=== PATIENT | male | born 1970 | race Caucasian/White ===

== ENCOUNTER 2017-10-15 12:41 | Observation (INO) | payer OTHER ==
[~2017-10-15] VITALS: Ht 160 cm; Wt 80.0 kg
[2017-10-15 12:45] VITALS: BP 149/65; PULSE 95; RESP 16; TEMP 97.8; O2SAT 100
[2017-10-15] MEDS ORDERED: SODIUM CHLOR 0.9% 1000 ML INJ 1,000 ML IV SCH (12:58)
[2017-10-15] MEDS ORDERED: PANTOPRAZOLE SODIUM 40 MG VIAL IVP ONE (13:00)
[2017-10-15] MEDS ORDERED: SODIUM CHLORIDE 0.9% FLUSH 10 ML FLUSH IVF PRN (13:00)
[2017-10-15] MEDS ORDERED: GABA300C5 PO (13:08)
[2017-10-15] MEDS ORDERED: PARO20TA2 PO (13:08)
[2017-10-15] MEDS ORDERED: GABA600T PO (13:08)
[2017-10-15] MEDS ORDERED: BUSP30TA PO (13:08)
[2017-10-15 13:09] VITALS: O2SAT 97
--- NOTE | 2017-10-15 13:11 | PD ---
HPI Chief Complaint: Abdominal Pain Time Seen by Provider: 12:48 Travel History International Travel<30 days: No Contact w/Intl Traveler<30days: No Traveled to known affect area: No History of Present Illness HPI Patient is a 47-year-old male presenting to emergency for evaluation of abdominal pain. Patient states it started 4 days ago, black tarry like stools. Symptoms started gradually, getting progressively worse. He reports that food does help improve the abdominal pain. Pain is all over but he localizes it to the left and right lower quadrants. Patient reports feeling weak and bloated. He denies any nausea, vomiting, fever, chills. He reports his pain is a 5 out of 10, again symptom onset was gradual, alleviated by food. Patient reports that he was on the antacids for his stomach however he was taken off of this medication 6 months ago. He has a history of GI bleeding gastric ulcers. PFSH Past Medical History Anxiety: Yes Depression: Yes Gastrointestinal Disorders: Yes (GI bleed, ulcers) Psychiatric: Yes (PTSD) Social History Alcohol Use: No Tobacco Use: No Substance Use: No Allergies-Medications (Allergen,Severity, Reaction): Coded Allergies: No Known Allergies (Unverified , 08/24/12) Reported Meds & Prescriptions Reported Meds & Active Scripts Active Reported Paroxetine (Paroxetine HCl) 20 Mg Tab 20 Mg PO DAILY Buspirone (Buspirone HCl) 30 Mg Tab 30 Mg PO HS Gabapentin 300 Mg Cap 300 Mg PO TID Gabapentin 600 Mg Tab 600 Mg PO HS Review of Systems Except as stated in HPI: all other systems reviewed are Neg Gastrointestinal: Positive: Abdominal Pain, Changes in Bowel Habits, Other ( Dark stools), No: Nausea, Vomiting Neurologic: Positive: Weakness Physical Exam Narrative GENERAL: Well-developed, well-nourished, alert male. Presenting in no acute distress. SKIN: Warm and dry. HEAD: Atraumatic. Normocephalic. EYES: Pupils equal and round. No scleral icterus. No injection or drainage. ENT: No nasal bleeding or discharge. Mucous membranes pink and moist. NECK: Trachea midline. No JVD. CARDIOVASCULAR: Regular rate and rhythm. RESPIRATORY: No accessory muscle use. Clear to auscultation. Breath sounds equal bilaterally. GASTROINTESTINAL: Abdomen soft, mildly tender to palpation diffusely, mildly distended. Hepatic and splenic margins not palpable. Positive bowel sounds, rebound, guarding. MUSCULOSKELETAL: Extremities without clubbing, cyanosis, or edema. No obvious deformities. NEUROLOGICAL: Awake and alert. No obvious cranial nerve deficits. Motor grossly within normal limits. Five out of 5 muscle strength in the arms and legs. Normal speech. PSYCHIATRIC: Appropriate mood and affect; insight and judgment normal. Data Data Last Documented VS Vital Signs Date Time Temp Pulse Resp B/P (MAP) Pulse Ox O2 Delivery O2 Flow Rate FiO2 10/15/17 13:10 18 10/15/17 13:09 97 Nasal Cannula 2.00 10/15/17 12:45 97.8 95 149/65 (93) Orders Orders Complete Blood Count With Diff (10/15/17 12:58) Comprehensive Metabolic Panel (10/15/17 12:58) Lipase (10/15/17 12:58) Prothrombin Time / Inr (Pt) (10/15/17 12:58) Act Partial Throm Time (Ptt) (10/15/17 12:58) Type And Screen (10/15/17 12:58) Ecg Monitoring (10/15/17 12:58) Iv Access Insert/Monitor (10/15/17 12:58) Oximetry (10/15/17 12:58) Pantoprazole Inj (Protonix Inj) (10/15/17 13:00) Sodium Chlor 0.9% 1000 Ml Inj (Ns 1000 M (10/15/17 12:58) Sodium Chloride 0.9% Flush (Ns Flush) (10/15/17 13:00) Sodium Chloride 0.9... W/Pantoprazole In (10/15/17 14:50) Admit Order (Ed Use Only) (10/15/17 15:50) Place In Observation (10/15/17 ) Vital Signs (Adult) Q4H (10/15/17 15:50) Activity Oob With Assistance (10/15/17 15:50) Printer Slotter Feeder / Telemetry .CONTINUOUS (10/15/17 15:50) Intake + Output OLAF.QSHIFT (10/15/17 15:50) Diet Npo (10/15/17 Dinner) Sodium Chlor 0.9% 1000 Ml Inj (Ns 1000 M (10/15/17 15:50) Sodium Chloride 0.9% Flush (Ns Flush) (10/15/17 16:00) Sodium Chloride 0.9% Flush (Ns Flush) (10/15/17 21:00) Acetaminophen (Tylenol) (10/15/17 16:00) Ondansetron Inj (Zofran Inj) (10/15/17 16:00) Scd Bilateral/Knee High OLAF.BID (10/15/17 15:50) Naloxone Inj (Narcan Inj) (10/15/17 16:00) Magnesium Hydroxide Liq (Milk Of Magnesi (10/15/17 16:00) Sennosides (Senokot) (10/15/17 16:00) Bisacodyl Supp (Dulcolax Supp) (10/15/17 16:00) Pantoprazole Inj (Protonix Inj) (10/15/17 16:00) Labs Laboratory Tests Test 10/15/17 13:08 White Blood Count 7.5 TH/MM3 Red Blood Count 4.17 MIL/MM3 Hemoglobin 13.7 GM/DL Hematocrit 38.8 % Mean Corpuscular Volume 93.0 FL Mean Corpuscular Hemoglobin 32.7 PG Mean Corpuscular Hemoglobin Concent 35.2 % Red Cell Distribution Width 13.5 % Platelet Count 227 TH/MM3 Mean Platelet Volume 9.3 FL Neutrophils (%) (Auto) 63.7 % Lymphocytes (%) (Auto) 27.0 % Monocytes (%) (Auto) 7.2 % Eosinophils (%) (Auto) 1.5 % Basophils (%) (Auto) 0.6 % Neutrophils # (Auto) 4.8 TH/MM3 Lymphocytes # (Auto) 2.0 TH/MM3 Monocytes # (Auto) 0.5 TH/MM3 Eosinophils # (Auto) 0.1 TH/MM3 Basophils # (Auto) 0.0 TH/MM3 CBC Comment DIFF FINAL Differential Comment Prothrombin Time 10.3 SEC Prothromb Time International Ratio 1.0 RATIO Activated Partial Thromboplast Time 24.7 SEC Blood Urea Nitrogen 13 MG/DL Creatinine 0.95 MG/DL Random Glucose 102 MG/DL Total Protein 7.4 GM/DL Albumin 3.9 GM/DL Calcium Level 9.1 MG/DL Alkaline Phosphatase 54 U/L Aspartate Amino Transf (AST/SGOT) 19 U/L Alanine Aminotransferase (ALT/SGPT) 26 U/L Total Bilirubin 0.4 MG/DL Sodium Level 137 MEQ/L Potassium Level 4.1 MEQ/L Chloride Level 104 MEQ/L Carbon Dioxide Level 26.1 MEQ/L Anion Gap 7 MEQ/L Estimat Glomerular Filtration Rate 85 ML/MIN Lipase 121 U/L [facility] Medical Decision Making Medical Screen Exam Complete: Yes Emergency Medical Condition: Yes Interpretation(s) Laboratory Tests Test 10/15/17 13:08 White Blood Count 7.5 TH/MM3 Red Blood Count 4.17 MIL/MM3 Hemoglobin 13.7 GM/DL Hematocrit 38.8 % Mean Corpuscular Volume 93.0 FL Mean Corpuscular Hemoglobin 32.7 PG Mean Corpuscular Hemoglobin Concent 35.2 % Red Cell Distribution Width 13.5 % Platelet Count 227 TH/MM3 Mean Platelet Volume 9.3 FL Neutrophils (%) (Auto) 63.7 % Lymphocytes (%) (Auto) 27.0 % Monocytes (%) (Auto) 7.2 % Eosinophils (%) (Auto) 1.5 % Basophils (%) (Auto) 0.6 % Neutrophils # (Auto) 4.8 TH/MM3 Lymphocytes # (Auto) 2.0 TH/MM3 Monocytes # (Auto) 0.5 TH/MM3 Eosinophils # (Auto) 0.1 TH/MM3 Basophils # (Auto) 0.0 TH/MM3 CBC Comment DIFF FINAL Differential Comment Prothrombin Time 10.3 SEC Prothromb Time International Ratio 1.0 RATIO Activated Partial Thromboplast Time 24.7 SEC Blood Urea Nitrogen 13 MG/DL Creatinine 0.95 MG/DL Random Glucose 102 MG/DL Total Protein 7.4 GM/DL Albumin 3.9 GM/DL Calcium Level 9.1 MG/DL Alkaline Phosphatase 54 U/L Aspartate Amino Transf (AST/SGOT) 19 U/L Alanine Aminotransferase (ALT/SGPT) 26 U/L Total Bilirubin 0.4 MG/DL Sodium Level 137 MEQ/L Potassium Level 4.1 MEQ/L Chloride Level 104 MEQ/L Carbon Dioxide Level 26.1 MEQ/L Anion Gap 7 MEQ/L Estimat Glomerular Filtration Rate 85 ML/MIN Lipase 121 U/L Vital Signs Date Time Temp Pulse Resp B/P (MAP) Pulse Ox O2 Delivery O2 Flow Rate FiO2 10/15/17 12:45 97.8 95 16 149/65 93 100 Differential Diagnosis GI bleed versus metabolic abnormality versus peptic ulcer disease versus anemia versus other Narrative Course Patient is a 47-year-old male presenting for evaluation of abdominal pain and dark stools. Hemoccult is positive. Labs ordered and pending. Patient's vital signs are stable. Labs reviewed, no acute findings identified. Patient was started on a Protonix drip. Patient will be admitted to observation for trending of hemoglobin. Patient is agreeable and was advised in all findings. He reports that the last GI bleed he had his hemoglobin was 4, he states he came in earlier this time to avoid that. He reports that this last episode was several years ago. He continues to deny any alcohol use. Dr. Roe accepted admit , orders placed. HemaPrompt Point of Care Fecal Specimen Occult Blood: Positive Diagnosis Primary Impression: GI bleed Qualified Codes: K92.2 - Gastrointestinal hemorrhage, unspecified Admitting Information Admitting Physician Requests: Observation Condition: Stable Tory Agustin Oct 15, 2017 13:11
[2017-10-15 13:32] LABS: AUTOMATED NEUTROPHIL # 4.8 TH/MM3 (1.8-7.7); BASOPHIL % 0.6 % (0.0-2.0); EOSINOPHIL # 0.1 TH/MM3 (0-0.4); EOSINOPHIL % 1.5 % (0.0-4.0); HEMATOCRIT 38.8 % (39.0-51.0); HEMOGLOBIN 13.7 GM/DL (13.0-17.0); MEAN CORPUSCULAR HEMOGLOBIN 32.7 PG (27.0-34.0); MEAN CORPUSCULAR HGB CONC 35.2 % (32.0-36.0); MEAN PLATELET VOLUME 9.3 FL (7.0-11.0); MONO % 7.2 % (0.0-8.0); MONOCYTE # 0.5 TH/MM3 (0-0.9); NEUT % 63.7 % (16.0-70.0); PLATELET COUNT 227 TH/MM3 (150-450); RED BLOOD COUNT 4.17 MIL/MM3 (4.50-5.90); RED CELL DISTRIBUTION WIDTH 13.5 % (11.6-17.2); WHITE BLOOD COUNT 7.5 TH/MM3 (4.0-11.0)
[2017-10-15 13:44] LABS: PROTHROMBIN TIME - PATIENT 10.3 SEC (9.8-11.6)
[2017-10-15 14:15] LABS: ALBUMIN 3.9 GM/DL (3.4-5.0); ALKALINE PHOSPHATASE 54 U/L (45-117); ALT (GPT) 26 U/L (12-78); AST (GOT) 19 U/L (15-37); BICARBONATE 26.1 MEQ/L (21.0-32.0); BLOOD UREA NITROGEN 13 MG/DL (7-18); CALCIUM 9.1 MG/DL (8.5-10.1); CHLORIDE 104 MEQ/L (98-107); CREATININE 0.95 MG/DL (0.60-1.30); GLOMERULAR FILTRATION RATE 85 ML/MIN (>89); GLUCOSE,RANDOM 102 MG/DL (74-106); SODIUM (NA) 137 MEQ/L (136-145); TOTAL BILIRUBIN ADULT 0.4 MG/DL (0.2-1.0); TOTAL PROTEIN 7.4 GM/DL (6.4-8.2)
[2017-10-15] MEDS: PANTOPRAZOLE INJ 80 MG in SODIUM CHLORIDE 0.9% INJ 100 ML IV SCH (15:10)
[2017-10-15] MEDS ORDERED: ONDANSETRON HCL 4 MG/2 ML VIAL IVP PRN (16:00)
[2017-10-15] MEDS ORDERED: SENNOSIDES 8.6 MG TAB PO PRN (16:00)
[2017-10-15] MEDS ORDERED: BISACODYL 10 MG SUPP RECTAL PRN (16:00)
[2017-10-15] MEDS ORDERED: NALOXONE HCL 0.4 MG/ML AMP IV PUSH PRN (16:00)
[2017-10-15] MEDS ORDERED: MAGNESIUM HYDROXIDE SUSP 30 ML CUP PO PRN (16:00)
[2017-10-15] MEDS ORDERED: SODIUM CHLORIDE 0.9% FLUSH 10 ML FLUSH IV FLUSH PRN (16:00)
[2017-10-15] MEDS ORDERED: PANTOPRAZOLE SODIUM 40 MG VIAL IV PUSH SCH (16:00)
[2017-10-15] MEDS ORDERED: ACETAMINOPHEN 325 MG TAB PO PRN (16:00)
[2017-10-15 16:04] VITALS: BP 137/91; O2SAT 99
[2017-10-15] MEDS: SODIUM CHLOR 0.9% 1000 ML INJ 1,000 ML IV SCH (16:08)
--- NOTE | 2017-10-15 16:53 | PD.CONS ---
HPI History of Present Illness This is a 47 year old mild obese male who came to the emergency room on for evaluation of dark tarry stools as 4 days ago. Patient is very familiar with symptoms of upper GI bleeding, (gastric ulcers), has had 3 previous episodes requiring meds and endoscopy. First upper GI bleed was in [place] in 2004, last 2 episodes were in [place], last EGD colonoscopy done approximately 8 years ago. Patient has been in the [place] war, and has been on an unknown PPI up until 6 months ago when [facility] felt like he would not need it anymore. Patient does have some mild epigastric and gastric discomfort , and some abdominal soreness. Denies any dysphasia, positive for nausea but no vomiting, no diarrhea no constipation. Hemoglobin now 13.7, no family history of colon cancer. Patient denies any recent fevers chills headache, and according to the record patient states his pain was gradual, and was alleviated with food. Patient is a nonsmoker ,no EtOH abuse. (Silke Hale) PFSH Past Medical History Upper GI bleed/gastric ulcers Anxiety Depression Posttraumatic stress disorder, has served in the [place] war Past Surgical History Carpal tunnel surgery 2, left and right wrist (Silke Hale) Coded Allergies: No Known Allergies (Unverified Allergy, Unknown, 10/15/17) Medications Administered Medications Medications (Trade) Dose Ordered Sig/Benita Route PRN Reason Start Time Stop Time Status Last Admin Dose Admin Pantoprazole Sodium 80 mg/ Sodium Chloride 100 ml @ 10 mls/hr Q10H IV 10/15/17 14:50 10/15/17 15:10 Sodium Chloride 1,000 ml @ 100 mls/hr Q10H IV 10/15/17 15:50 10/15/17 16:08 Family History No family history of colon cancer Social History No alcohol in 9 years Nonsmoker No illicit drugs (Silke Hale) Review of Systems Constitutional: COMPLAINS OF: Fatigue, Dizziness (mild now resolved) Gastrointestinal: COMPLAINS OF: Black stools (Silke Hale) GI Exam Vitals I&O Vital Signs Date Time Temp Pulse Resp B/P (MAP) Pulse Ox O2 Delivery O2 Flow Rate FiO2 10/15/17 16:04 87 18 137/91 (106) 99 10/15/17 13:10 18 10/15/17 13:09 97 Nasal Cannula 2.00 10/15/17 12:45 97.8 95 16 149/65 (93) 100 Laboratory Test 10/15/17 13:08 White Blood Count 7.5 TH/MM3 Red Blood Count 4.17 MIL/MM3 Hemoglobin 13.7 GM/DL Hematocrit 38.8 % Mean Corpuscular Volume 93.0 FL Mean Corpuscular Hemoglobin 32.7 PG Mean Corpuscular Hemoglobin Concent 35.2 % Red Cell Distribution Width 13.5 % Platelet Count 227 TH/MM3 Mean Platelet Volume 9.3 FL Neutrophils (%) (Auto) 63.7 % Lymphocytes (%) (Auto) 27.0 % Monocytes (%) (Auto) 7.2 % Eosinophils (%) (Auto) 1.5 % Basophils (%) (Auto) 0.6 % Neutrophils # (Auto) 4.8 TH/MM3 Lymphocytes # (Auto) 2.0 TH/MM3 Monocytes # (Auto) 0.5 TH/MM3 Eosinophils # (Auto) 0.1 TH/MM3 Basophils # (Auto) 0.0 TH/MM3 CBC Comment DIFF FINAL Differential Comment Prothrombin Time 10.3 SEC Prothromb Time International Ratio 1.0 RATIO Activated Partial Thromboplast Time 24.7 SEC Blood Urea Nitrogen 13 MG/DL Creatinine 0.95 MG/DL Random Glucose 102 MG/DL Total Protein 7.4 GM/DL Albumin 3.9 GM/DL Calcium Level 9.1 MG/DL Alkaline Phosphatase 54 U/L Aspartate Amino Transf (AST/SGOT) 19 U/L Alanine Aminotransferase (ALT/SGPT) 26 U/L Total Bilirubin 0.4 MG/DL Sodium Level 137 MEQ/L Potassium Level 4.1 MEQ/L Chloride Level 104 MEQ/L Carbon Dioxide Level 26.1 MEQ/L Anion Gap 7 MEQ/L Estimat Glomerular Filtration Rate 85 ML/MIN Lipase 121 U/L Physical Examination HEENT: Pupils round and reactive to light; normocephalic; atraumatic; no jaundice ,oral cavity clear . Mild obese NECK: Neck is supple, no JVD, no lymphadenopathy. CHEST: Chest is clear to auscultation and percussion. CARDIAC: Regular rate and rhythm ABDOMEN: Round, Soft, nondistended, nontender; no hepatosplenomegaly; bowel sounds are present in all four quadrants. EXTREMITIES: No clubbing, cyanosis, or edema. SKIN: Normal; no rash; no jaundice. STORE MERCHANDISER: No focal deficits; alert and oriented times three. (Silke Hale) Assessment and Plan Plan Melena, multiple black tarry-like stools 4 days ago, now subsided. Abdominal pain predominantly gastric and epigastric with some soreness, history of 3 previous upper GI bleeds and gastric ulcers and EGDs. Last one 8 years ago. Has records in [place] in 2004, [place] 2 afterwards, now here for the fourth event. Was taken off his PPI unknown drug [facility] months ago [facility] since his symptoms have been controlled. History of traumatic stress disorder and anxiety probable secondary to the [place] war Plan EGD in the morning. Consent, discussed plan of care in process with him Nothing by mouth at midnight Diet clear liquids for now Monitor labs Continue IV PPI for now Monitor for any acute bleeding Supportive care Patient was seen per myself and Dr. De Paz, this note was written on his behalf (Silke Hale) Physician Comments Seen and examined with [facility], no active bleeding at present. EGD planned. IV protonix, monitor labs. Dr Oquendo to follow. Thank you (Gregorio De Paz MD) Silke Hale Oct 15, 2017 16:53 Gregorio De Paz MD Oct 17, 2017 15:25
--- NOTE | 2017-10-15 17:04 | HHI.HP ---
[facility] Service [facility] Primary Care Physician [facility] Admission Diagnosis GI BLEED Diagnoses: Chief Complaint: Abdominal pain and GI bleed Travel History International Travel<30 Days: No Contact w/Intl Traveler <30 Da: No Traveled to Known Affected Are: No History of Present Illness This is a 47-year-old male past medical history of gastric ulcer who presented with abdominal pain and GI bleed. Patient stated that abdominal pain started 3- 4 days ago, located in mid abdominal area, described as sharp, eating food helps with pain for 30 minutes but the but then pain reoccurred Positive for nausea but no vomiting. Patient stated that he was on a PPI but it was stopped 6 months ago. Patient takes ibuprofen 2-3 times a week. He stated that yesterday he started to have charcoaled color stools that look like blood. All other review of system reviewed and negative. Past Family Social History Past Medical History Upper GI bleed/gastric ulcers Anxiety Depression Posttraumatic stress disorder, has served in the [place] war Past Surgical History Carpal tunnel surgery 2, left and right wrist Reported Medications Reported Meds & Active Scripts Active Reported Paroxetine (Paroxetine HCl) 20 Mg Tab 20 Mg PO DAILY Buspirone (Buspirone HCl) 30 Mg Tab 30 Mg PO HS Gabapentin 300 Mg Cap 300 Mg PO TID Gabapentin 600 Mg Tab 600 Mg PO HS Allergies: Coded Allergies: No Known Allergies (Unverified Allergy, Unknown, 10/15/17) Active Ordered Medications Current Medications Pantoprazole Sodium (Protonix Inj) 40 mg ONCE ONCE IVP Last administered on 10/15/17at 13:17; Start 10/15/17 at 13:00; Stop 10/15/17 at 13:01; Status DC Sodium Chloride 1,000 ml @ 1,000 mls/hr Q1H IV Last administered on 10/15/17at 13:17; Start 10/15/17 at 12:58; Stop 10/15/17 at 13:57; Status DC Sodium Chloride (NS Flush) 2 ml UNSCH PRN IVF FLUSH AFTER USING IV ACCESS; Start 10/15/17 at 13:00 Pantoprazole Sodium 80 mg/ Sodium Chloride 100 ml @ 10 mls/hr Q10H IV Last administered on 10/15/17at 15:10; Start 10/15/17 at 14:50 Sodium Chloride 1,000 ml @ 100 mls/hr Q10H IV Last administered on 10/15/17at 16 :08; Start 10/15/17 at 15:50 Sodium Chloride (NS Flush) 2 ml UNSCH PRN IV FLUSH FLUSH AFTER USING IV ACCESS ; Start 10/15/17 at 16:00 Sodium Chloride (NS Flush) 2 ml BID IV FLUSH ; Start 10/15/17 at 21:00 Acetaminophen (Tylenol) 650 mg Q4H PRN PO TEMP > 100.4; Start 10/15/17 at 16:00 Ondansetron HCl (Zofran Inj) 4 mg Q6H PRN IVP NAUSEA OR VOMITING; Start at 16:00 Naloxone HCl (Narcan Inj) 0.4 mg UNSCH PRN IV PUSH SEE LABEL COMMENTS; Start at 16:00 Magnesium Hydroxide (Milk Of Magnesia Liq) 30 ml Q12H PRN PO Mild constipation ; Start 10/15/17 at 16:00 Sennosides (Senokot) 17.2 mg Q12H PRN PO Moderate constipation; Start 10/15/17 at 16:00 Bisacodyl (Dulcolax Supp) 10 mg DAILY PRN RECTAL SEVERE CONSITIPATION; Start at 16:00 Pantoprazole Sodium (Protonix Inj) 40 mg Q12H IV PUSH ; Start 10/15/17 at 16:00 Gabapentin (Neurontin) 300 mg TID PO ; Start 10/15/17 at 18:00 Gabapentin (Neurontin) 600 mg HS PO ; Start 10/15/17 at 21:00 Paroxetine HCl (Paxil) 20 mg DAILY PO ; Start 10/16/17 at 09:00 Family History No family history of colon cancer Social History No alcohol in 9 years Nonsmoker No illicit drugs Physical Exam Vital Signs Vital Signs Date Time Temp Pulse Resp B/P (MAP) Pulse Ox O2 Delivery O2 Flow Rate FiO2 10/15/17 16:04 87 18 137/91 (106) 99 10/15/17 13:10 18 10/15/17 13:09 97 Nasal Cannula 2.00 10/15/17 12:45 97.8 95 16 149/65 (55) 100 Physical Exam GENERAL: This is a well-nourished, well-developed patient, in no apparent distress. SKIN: No rashes, ecchymoses or lesions. Cool and dry. HEAD: Atraumatic. Normocephalic. No temporal or scalp tenderness. EYES: Pupils equal round and reactive. Extraocular motions intact. No scleral icterus. No injection or drainage. ENT: Nose without bleeding, purulent drainage or septal hematoma. Throat without erythema, tonsillar hypertrophy or exudate. Uvula midline. Airway patent. NECK: Trachea midline. No JVD or lymphadenopathy. Supple, nontender, no meningeal signs. CARDIOVASCULAR: Regular rate and rhythm without murmurs, gallops, or rubs. RESPIRATORY: Clear to auscultation. Breath sounds equal bilaterally. No wheezes , rales, or rhonchi. GASTROINTESTINAL: Abdomen soft and nondistended. Mild tenderness palpation mid abdomen. no hepato-splenomegaly, or palpable masses. No guarding. MUSCULOSKELETAL: Extremities without clubbing, cyanosis, or edema. No joint tenderness, effusion, or edema noted. No calf tenderness. Negative Homans sign bilaterally. NEUROLOGICAL: Awake and alert. Cranial nerves II through XII intact. Motor and sensory grossly within normal limits. Five out of 5 muscle strength in all muscle groups. Normal speech. Laboratory Laboratory Tests Test 10/15/17 13:08 White Blood Count 7.5 Red Blood Count 4.17 Hemoglobin 13.7 Hematocrit 38.8 Mean Corpuscular Volume 93.0 Mean Corpuscular Hemoglobin 32.7 Mean Corpuscular Hemoglobin Concent 35.2 Red Cell Distribution Width 13.5 Platelet Count 227 Mean Platelet Volume 9.3 Neutrophils (%) (Auto) 63.7 Lymphocytes (%) (Auto) 27.0 Monocytes (%) (Auto) 7.2 Eosinophils (%) (Auto) 1.5 Basophils (%) (Auto) 0.6 Neutrophils # (Auto) 4.8 Lymphocytes # (Auto) 2.0 Monocytes # (Auto) 0.5 Eosinophils # (Auto) 0.1 Basophils # (Auto) 0.0 CBC Comment DIFF FINAL Differential Comment Prothrombin Time 10.3 Prothromb Time International Ratio 1.0 Activated Partial Thromboplast Time 24.7 Blood Urea Nitrogen 13 Creatinine 0.95 Random Glucose 102 Total Protein 7.4 Albumin 3.9 Calcium Level 9.1 Alkaline Phosphatase 54 Aspartate Amino Transf (AST/SGOT) 19 Alanine Aminotransferase (ALT/SGPT) 26 Total Bilirubin 0.4 Sodium Level 137 Potassium Level 4.1 Chloride Level 104 Carbon Dioxide Level 26.1 Anion Gap 7 Estimat Glomerular Filtration Rate 85 Lipase 121 Result Diagram: 10/15/17 1308 10/15/17 1308 Caprini VTE Risk Assessment Caprini VTE Risk Assessment: No/Low Risk (score <= 1) Caprini Risk Assessment Model Point Value = 1 Point Value = 2 Point Value = 3 Point Value = 5 Age 41-60 Minor surgery BMI > 25 kg/m2 Swollen legs Varicose veins or History of unexplained or recurrent spontaneous Oral contraceptives or hormone replacement Sepsis (< 1 month) Serious lung disease, including pneumonia (< 1 month) Abnormal pulmonary function Acute myocardial infarction Congestive heart failure (< 1 month) History of inflammatory bowel disease Medical patient at bed rest Age 61-74 Arthroscopic surgery Major open surgery (> 45 min) Laparoscopic surgery (> 45 min) Malignancy Confined to bed (> 72 hours) Immobilizing plaster cast Central venous access Age >= 75 History of VTE Family history of VTE Factor V Leiden Prothrombin [id number] Lupus anticoagulant Anticardiolipin antibodies Elevated serum homocysteine Heparin-induced thrombocytopenia Other congenital or acquired thrombophilia Stroke (< 1 month) Elective arthroplasty Hip, pelvis, or leg fracture Acute spinal cord injury (< 1 month) Prophylaxis Regimen Total Risk Factor Score Risk Level Prophylaxis Regimen 0-1 Low Early ambulation 2 Moderate Order ONE of the following: *Sequential Compression Device (SCD) *Heparin 5000 units SQ BID 3-4 Higher Order ONE of the following medications: *Heparin 5000 units SQ TID *Enoxaparin/Lovenox 40 mg SQ daily (WT < 150 kg, CrCl > 30 mL/min) *Enoxaparin/Lovenox 30 mg SQ daily (WT < 150 kg, CrCl > 10-29 mL/min) *Enoxaparin/Lovenox 30 mg SQ BID (WT < 150 kg, CrCl > 30 mL/min) AND/OR *Sequential Compression Device (SCD) 5 or more Highest Order ONE of the following medications: *Heparin 5000 units SQ TID (Preferred with Epidurals) *Enoxaparin/Lovenox 40 mg SQ daily (WT < 150 kg, CrCl > 30 mL/min) *Enoxaparin/Lovenox 30 mg SQ daily (WT < 150 kg, CrCl > 10-29 mL/min) *Enoxaparin/Lovenox 30 mg SQ BID (WT < 150 kg, CrCl > 30 mL/min) AND *Sequential Compression Device (SCD) Assessment and Plan Assessment and Plan This is a 47-year-old male with history of gastric ulcer who presented with abdominal pain and maroon colored stools Abdominal pain/GI bleed -Hemoglobin 13.7. Patient is hemodynamically stable. -Patient given Protonix bolus and started on Protonix drip in the ED. -Concern for a bleeding ulcer so we will continue a Protonix drip. Continue to monitor and trend hemoglobin. Start IV fluids. -Consult GI. -Avoid NSAIDs. Anxiety/depression/PTSD -Continue with home medication. DVT prophylaxis -Low risk. SCDs. Discussed Condition With patient Clementina Roe MD Oct 15, 2017 17:04
[2017-10-15 17:14] VITALS: BP 139/88; PULSE 76; RESP 18; TEMP 97.8; O2SAT 99
[2017-10-15] MEDS: GABAPENTIN 300 MG CAP PO SCH (17:24)
[2017-10-15] MEDS ORDERED: POVIDONE IODINE 5% (ANTISEPSIS KIT) 4 APPLICATIONS EACH NARE PRN (18:15)
[2017-10-15] MEDS ORDERED: SODIUM CHLORID 0.9% 500 ML IV PRN (18:15)
[2017-10-15] MEDS ORDERED: INSULIN HUMAN REGULAR 1,000 UNITS/10 ML VIAL SQ PRN (18:15)
[2017-10-15] MEDS ORDERED: METOPROLOL TARTRATE 25 MG TAB PO PRN (18:15)
[2017-10-15] MEDS ORDERED: LACTATED RINGER'S 1000 ML IV PRN (18:15)
[2017-10-15] MEDS ORDERED: CHLORHEXIDINE GLUCONATE 2 % 1 PACK (2 CLOTHS) TOPICAL PRN (18:15)
[2017-10-15 19:40] VITALS: BP 127/84; PULSE 76; RESP 19; TEMP 98.3; O2SAT 96
[2017-10-15] MEDS ORDERED: GABAPENTIN 300 MG CAP PO SCH (21:00)
[2017-10-15] MEDS: SODIUM CHLORIDE 0.9% FLUSH 10 ML FLUSH IV FLUSH SCH (21:00)
--- NOTE | 2017-10-15 22:22 | HHI.PR ---
Subjective Remarks NOT SEEN Objective Vitals Vital Signs Date Time Temp Pulse Resp B/P (MAP) Pulse Ox O2 Delivery O2 Flow Rate FiO2 10/15/17 19:40 98.3 76 19 127/84 (98) 96 10/15/17 17:14 97.8 76 18 139/88 (105) 99 10/15/17 17:03 10/15/17 16:04 87 18 137/91 (106) 99 10/15/17 13:10 18 10/15/17 13:09 97 Nasal Cannula 2.00 10/15/17 12:45 97.8 95 16 149/65 (93) 100 I/O 10/14/17 10/14/17 10/14/17 10/15/17 10/15/17 10/15/17 07:00 15:00 23:00 07:00 15:00 23:00 Output Total 800 ml Balance -800 ml Output Urine Total 800 ml # Voids 1 Result Diagram: 10/15/17 1308 10/15/17 1308 Objective Remarks GENERAL: This is a well-nourished, well-developed patient, in no apparent distress. SKIN: No rashes, ecchymoses or lesions. Cool and dry. HEAD: Atraumatic. Normocephalic. No temporal or scalp tenderness. EYES: Pupils equal round and reactive. Extraocular motions intact. No scleral icterus. No injection or drainage. ENT: Nose without bleeding, purulent drainage or septal hematoma. Throat without erythema, tonsillar hypertrophy or exudate. Uvula midline. Airway patent. NECK: Trachea midline. No JVD or lymphadenopathy. Supple, nontender, no meningeal signs. CARDIOVASCULAR: Regular rate and rhythm without murmurs, gallops, or rubs. RESPIRATORY: Clear to auscultation. Breath sounds equal bilaterally. No wheezes , rales, or rhonchi. GASTROINTESTINAL: Abdomen soft and nondistended. Mild tenderness palpation mid abdomen. No guarding. MUSCULOSKELETAL: Extremities without clubbing, cyanosis, or edema. No joint tenderness, effusion, or edema noted. No calf tenderness. Negative Homans sign bilaterally. NEUROLOGICAL: Awake and alert. Cranial nerves II through XII intact. Motor and sensory grossly within normal limits. Five out of 5 muscle strength in all muscle groups. Normal speech. A/P Problem List: (1) GI bleed ICD Code: K92.2 - Gastrointestinal hemorrhage, unspecified Status: Acute Assessment and Plan This is a 47-year-old male with history of gastric ulcer who presented with abdominal pain and maroon colored stools Abdominal pain/GI bleed -Hemoglobin 13.7. Patient is hemodynamically stable. -Patient given Protonix bolus and started on Protonix drip in the ED. -Concern for a bleeding ulcer so we will continue a Protonix drip. Continue to monitor and trend hemoglobin. Start IV fluids. -Consulted GI for endoscopy. -Avoid NSAIDs. Anxiety/depression/PTSD -Continue with home medication. DVT prophylaxis -Low risk. SCDs. Problem Qualifiers (1) GI bleed: Qualified Codes: K92.2 - Gastrointestinal hemorrhage, unspecified Jonah Dumont MD Oct 15, 2017 22:22
[2017-10-15 23:50] VITALS: BP 123/77; PULSE 79; RESP 17; TEMP 97.9; O2SAT 97
[2017-10-16] MEDS: PANTOPRAZOLE INJ 80 MG in SODIUM CHLORIDE 0.9% INJ 100 ML IV SCH ×2 (01:07→08:48)
[2017-10-16] MEDS: SODIUM CHLOR 0.9% 1000 ML INJ 1,000 ML IV SCH ×2 (01:50→12:14)
[2017-10-16 03:47] VITALS: BP 124/74; PULSE 68; RESP 16; TEMP 97.6; O2SAT 96
[2017-10-16 04:46] VITALS: BP 128/73; PULSE 73; RESP 17; TEMP 97.8; O2SAT 97
[2017-10-16 05:58] LABS: HEMATOCRIT 36.9 % (39.0-51.0); HEMOGLOBIN 12.8 GM/DL (13.0-17.0); MEAN CELL VOLUME 93.3 FL (80.0-100.0); MEAN CORPUSCULAR HEMOGLOBIN 32.4 PG (27.0-34.0); MEAN CORPUSCULAR HGB CONC 34.7 % (32.0-36.0); MEAN PLATELET VOLUME 9.1 FL (7.0-11.0); PLATELET COUNT 202 TH/MM3 (150-450); RED BLOOD COUNT 3.95 MIL/MM3 (4.50-5.90); RED CELL DISTRIBUTION WIDTH 13.3 % (11.6-17.2); WHITE BLOOD COUNT 6.2 TH/MM3 (4.0-11.0)
[2017-10-16 06:26] LABS: BICARBONATE 27.2 MEQ/L (21.0-32.0); CALCIUM 8.4 MG/DL (8.5-10.1); CREATININE 0.89 MG/DL (0.60-1.30)
[2017-10-16 08:00] VITALS: PULSE 76
[2017-10-16 08:05] VITALS: BP 126/86; PULSE 71; RESP 18; TEMP 97.8; O2SAT 96
[2017-10-16] MEDS ORDERED: TEMAZEPAM 7.5 MG CAP PO PRN (08:45)
[2017-10-16] MEDS ORDERED: PARoxetine HCL 20 MG TAB PO SCH (09:00)
--- NOTE | 2017-10-16 11:34 | GIPROC ---
[facility] [address] [facility]. [facility], [address] EGD PROCEDURE REPORT EXAM DATE: 10/16/2017 PATIENT NAME: Antonio James MR #: [id number] BIRTHDATE: 1970 ATTENDING: Karl Oquendo MD ORDER #: [id number] CASH APPLICATIONS REPRESENTATIVE: Josh Mendosa and Jessica Chopra STATUS: inpatient INDICATIONS: The patient is a 47 yr old male here for an EGD due to melena PROCEDURE PERFORMED: EGD w/ biopsy MEDICATIONS: None and Per Anesthesia. TOPICAL ANESTHETIC: none CONSENT: The patient understands the risks and benefits of the procedure and understands that these risks include, but are not limited to: sedation, allergic reaction, infection, perforation and/or bleeding. Alternative means of evaluation and treatment include, among others: physical exam, x-rays, and/or surgical intervention. The patient elects to proceed with this endoscopic procedure. medical equipment was checked for proper function. Hand hygiene and appropriate measures for infection prevention was taken. After the risks, benefits and alternatives of the procedure were thoroughly explained, Informed consent was verified, confirmed and timeout was successfully executed by the treatment team. The patient was anesthetized with topical anesthesia and the Pentax EG-[id number] endoscope was introduced through the mouth and advanced to the second portion of the duodenum. Retroflexion was performed and was normal The gastroscope was then slowly withdrawn and removed. ESOPHAGUS: The esophagus was otherwise normal. STOMACH: Two small non-bleeding, irregular shaped and clean-based ulcers were found in the prepyloric region of the stomach. Biopsies were taken at the center of the ulcers and at edge of the ulcers. DUODENUM: A single non-bleeding, round, deep and clean-based ulcer with a red spot was found in the 2nd part of the duodenum. ADVERSE EVENTS: There were no complications. IMPRESSIONS: 1. The esophagus was otherwise normal 2. Two small ulcers were found in the prepyloric region of the stomach; biopsies were taken 3. Single ulcer was found in the 2nd part of the duodenum 4. Retroflexion was performed and was normal RECOMMENDATIONS: 1. Continue PPI 2. Await biopsy results. Biopsy results will not be ready for 7-10 days. If you don't hear from us in two weeks, call our office for biopsy results. PATIENT CONDITION: stable DISPOSITION: Observation REPEAT EXAM: NONE Karl Oquendo MD eSigned: Karl Oquendo MD 10/16/2017 11:33 AM cc: PATIENT NAME: Antonio James MR#: [id number]
[2017-10-16] MEDS ORDERED: PROPOFOL 200 MG/20 ML AMP IV ONE (12:00)
[2017-10-16] MEDS ORDERED: LIDOCAINE HCL 1% PF 5 ML SYRINGE OTHER ONE (12:00)
[2017-10-16] MEDS: GABAPENTIN 300 MG CAP PO SCH ×2 (12:12→13:00)
[2017-10-16] MEDS: SODIUM CHLORIDE 0.9% FLUSH 10 ML FLUSH IV FLUSH SCH (12:14)
--- NOTE | 2017-10-16 12:38 | HHI.PR ---
Subjective Remarks Follow-up GI bleed. Patient feels better improved abdominal pain but no recurrence of bleed. Tolerated EGD. Discussed with nursing Objective Vitals Vital Signs Date Time Temp Pulse Resp B/P (MAP) Pulse Ox O2 Delivery O2 Flow Rate FiO2 10/16/17 11:36 97.9 72 16 127/81 (96) 96 10/16/17 08:05 97.8 71 18 126/86 (99) 96 10/16/17 08:00 76 10/16/17 04:46 97.8 73 17 128/73 (91) 97 10/16/17 03:47 97.6 68 16 124/74 (91) 96 10/15/17 23:50 97.9 79 17 123/77 (92) 97 10/15/17 19:40 98.3 76 19 127/84 (98) 96 10/15/17 17:14 97.8 76 18 139/88 (105) 99 10/15/17 17:03 10/15/17 16:04 87 18 137/91 (106) 99 10/15/17 13:10 18 10/15/17 13:09 97 Nasal Cannula 2.00 10/15/17 12:45 97.8 95 16 149/65 (93) 100 I/O 10/15/17 10/15/17 10/15/17 10/16/17 10/16/17 10/16/17 07:00 15:00 23:00 07:00 15:00 23:00 Output Total 800 ml Balance -800 ml Output Urine Total 800 ml # Voids 3 1 Result Diagram: 10/16/17 0537 10/16/17 0537 Objective Remarks GENERAL: This is a well-nourished, well-developed patient, in no apparent distress. SKIN: No rashes, ecchymoses or lesions. Cool and dry. CARDIOVASCULAR: Regular rate and rhythm without murmurs, gallops, or rubs. RESPIRATORY: Clear to auscultation. Breath sounds equal bilaterally. No wheezes , rales, or rhonchi. GASTROINTESTINAL: Abdomen soft and nondistended. Mild tenderness palpation mid abdomen. No guarding. MUSCULOSKELETAL: Extremities without clubbing, cyanosis, or edema. No joint tenderness, effusion, or edema noted. No calf tenderness. Negative Homans sign bilaterally. NEUROLOGICAL: Awake and alert. Cranial nerves II through XII intact. Motor and sensory grossly within normal limits. Five out of 5 muscle strength in all muscle groups. Normal speech. Procedures EGD A/P Problem List: (1) GI bleed ICD Code: K92.2 - Gastrointestinal hemorrhage, unspecified Status: Acute Assessment and Plan This is a 47-year-old male with history of gastric ulcer who presented with abdominal pain and maroon colored stools Abdominal pain/GI bleed status post EGD with 2 small ulcers in the prepyloric region of the stomach status post biopsy and a single ulcer in the second part of the duodenum. Stable continue PPI and follow-up biopsy results with GI outpatient. Avoid NSAIDs Anxiety/depression/PTSD. Continue with home medication. DVT prophylaxis. Low risk. SCDs. Discharge Planning Discharge patient to home Condition on discharge: Improved Regular Diet as tolerated Ad Cindy activity Rx written: Protonix Follow-up with primary care physician and GI Problem Qualifiers (1) GI bleed: Qualified Codes: K92.2 - Gastrointestinal hemorrhage, unspecified Jonah Dumont MD Oct 16, 2017 12:38
[2017-10-16 13:10] VITALS: BP 136/88; PULSE 84; RESP 16; TEMP 98; O2SAT 95
--- NOTE | 2017-10-16 13:40 | EKG ---
Date Performed: 10/15/2017 Time Performed: 17:57:10 PTAGE: 47 years EKG: Sinus rhythm NONSPECIFIC T-WAVE ABNORMALITY BORDERLINE ECG NO PREVIOUS TRACING DOCTOR: Bryce Del Rio Interpretating Date/Time 10/16/2017 13:36:25
[2017-10-16] MEDS ORDERED: PROT40TA PO (14:29)
--- NOTE | 2017-10-16 14:32 | HHI.DCPOC ---
Discharge Care Plan Diagnosis: (1) GI bleed Your Health Problems Are: Difficulty with ADL Exercise Tolerance Goals to Promote Your Health * To prevent worsening of your condition and complications * To maintain your health at the optimal level Directions to Meet Your Goals Take your medications as prescribed Follow your dietary instruction Follow activity as directed Keep your appointments as scheduled Take your immunizations and boosters as scheduled If your symptoms worsen call your PCP, if no PCP go to Urgent Care Center or Emergency Room Smoking is Dangerous to Your Health. Avoid second hand smoke Call the 24-hour hour crisis hotline for domestic abuse at Jonah Dumont MD Oct 16, 2017 14:32
[2017-10-16 15:35] VITALS: BP 119/70; PULSE 91; RESP 18; TEMP 98.2; O2SAT 96
[2017-10-16] MEDS ORDERED: busPIRone HCL 10 MG TAB PO SCH (21:00)
[2017-10-16] MEDS ORDERED: PANTOPRAZOLE SOD 40 MG DELAYED RELEASE TAB PO SCH (21:00)
== END 2017-10-16 17:56 | disposition home or self-care (01) ==
LOC: NEPE 12:41 → NEDA 15:51 → NEPGCP 17:42
PROVIDERS: ADMIT Internal Medicine; ATTEND Internal Medicine
DX: K25.9 Gastric ulcer, unspecified as acute or chronic, without hemorrhage or perforation (principal); K26.9 Duodenal ulcer, unspecified as acute or chronic, without hemorrhage or perforation; E66.9 Obesity, unspecified; F32.9 Major depressive disorder, single episode, unspecified; F43.10 Post-traumatic stress disorder, unspecified; Z68.31 Body mass index [BMI] 31.0-31.9, adult
CPT/HCPCS: 80048; 80053; 82948; 83690; 85018; 85025; 85027; 85610; 85730; 86850; 86900; 86901; 88305; 93005; 96361; 96365; 96366; 96375; C9113; G0378; J7030; J7120